=== PATIENT | female | born 1925 | race Caucasian/White ===

== ENCOUNTER 2016-10-14 14:43 | Emergency (ER) | payer MEDICAID, OTHER ==
[~2016-10-14] VITALS: Wt 65.5 kg
[~2016-10-14 14:43] MED LIST: EZET1TAB2
== END 2016-10-15 00:49 | disposition left against medical advice (07) ==
LOC: E/R 14:43
DX: Z53.21 Procedure and treatment not carried out due to patient leaving prior to being seen by health care provider (principal)